=== PATIENT | female | born 1990 | race Caucasian/White ===

== ENCOUNTER 2018-07-17 04:00 | Emergency (ER) | payer BC, MEDICAID ==
[2018-07-17] MEDS ORDERED: Albuterol/Ipratropium 3.0-0.5 MG/3 ML Neb Soln NEB ONE (04:24)
--- NOTE | 2018-07-17 04:33 | EDM.PDOC ---
ED HPI GENERAL MEDICAL PROBLEM - General Chief Complaint: Respiratory Problem Stated Complaint: COUGH AND SOB Time Seen by Provider: 07/17/18 04:15 Source of Information: Reports: Patient History Limitations: Reports: No Limitations - History of Present Illness INITIAL COMMENTS - FREE TEXT/NARRATIVE: Patient presents with a worsening cough congestion feeling short of breath. They going on for at least 2 almost 3 days. She has a son that has had a cold but not this severe. Patient denies any fevers, has had posttussive emesis, loss of appetite. History of smoking in the past along with asthma in the past. No hospitalizations for asthma. No history of any major bronchitis or pneumonia. Patient does feel achy and flulike. No skin rash noted no burning pain or blood in the urine however she has had some diarrhea. Has had chest pain from coughing so much, no lightheadedness or dizziness no syncope or near syncope. Throat Pain Score (Numeric/FACES): 6 - Related Data Allergies Allergy/AdvReac Type Severity Reaction Status Date / Time No Known Allergies Allergy Verified 07/17/18 04:08 Home Meds: Home Meds Albuterol [Proventil HFA] 2 puff INH Q4H PRN #1 inhaler 07/17/18 [Rx] Codeine/Promethazine [Phenergan with Codeine] 5 ml PO Q6HR PRN #240 ml 07/17/18 [Rx] Doxycycline [Vibramycin] 100 mg PO BID #20 tab 07/17/18 [Rx] Past Medical History - Past Surgical History HEENT Surgical History: Reports: Tonsillectomy GI Surgical History: Reports: Cholecystectomy Social & Family History - Family History Cardiac: Reports: [place] Oncologic: Reports: Bone, Lung, Ovarian - Tobacco Use Smoking Status *Q: Former Smoker Used Tobacco, but Quit: Yes Month/Year Tobacco Last Used: 06/2018 - Caffeine Use Caffeine Use: Reports: Coffee - Recreational Drug Use Recreational Drug Use: No ED ROS GENERAL - Review of Systems Review Of Systems: See Below Constitutional: Reports: Fatigue. Denies: Fever, Chills HEENT: Reports: Rhinitis Respiratory: Reports: Shortness of Breath, Cough. Denies: Sputum Cardiovascular: Reports: Chest Pain. Denies: Palpitations, Syncope GI/Abdominal: Reports: Diarrhea, Nausea, Vomiting. Denies: Abdominal Pain, Hematemesis : Denies: Dysuria, Irregular Menses Musculoskeletal: Reports: Muscle Pain Skin: Denies: Rash Neurological: Reports: Headache. Denies: Dizziness ED EXAM, GENERAL - Physical Exam Exam: See Below Exam Limited By: No Limitations General Appearance: Alert, WD/WN, Mild Distress Nose: Normal Inspection Throat/Mouth: Normal Inspection, Normal Voice, Other (Mild pharyngeal erythema no exudate, tongue and uvula midline) Neck: Supple. No: Lymphadenopathy (L), Lymphadenopathy (R) Respiratory/Chest: Rhonchi, Wheezing, Other (Reproducible diffuse with chest wall tenderness in the upper parasternal areas). No: Pleural Rub, Retractions Cardiovascular: Normal Peripheral Pulses, Regular Rate, Rhythm, No Edema GI/Abdominal: Normal Bowel Sounds, Soft, Non-Tender Extremities: No Pedal Edema. No: Cecil's Sign Neurological: Alert, Oriented Psychiatric: Normal Affect, Normal Mood Skin Exam: Warm, Dry Lymphatic: No Adenopathy EKG INTERPRETATION EKG Date: 07/17/18 Time: 05:17 EKG Interpretation Comments: EKG shows sinus tachycardia rate of 124 when necessary 131 ms, resuscitate milliseconds. QT no acute ischemic changes noted. Course - Vital Signs Text/Narrative:: Patient presents with a severe cough congestion runny nose aches and pains. She has posttussive emesis as well. Sent for x-ray to rule out pneumonia. Given her DuoNeb treatment. Suspect underlying bronchitis rule out pneumonia. Doubt pulmonary embolism or acute coronary syndrome. She'll with doxycycline, albuterol inhaler, Phenergan with codeine elixir follow-up and return to caution given. Last Recorded V/S: Last Vital Signs Temp 98.3 F 07/17/18 04:05 Pulse 120 H 07/17/18 04:05 Resp 16 07/17/18 04:05 BP 142/102 H 07/17/18 04:05 Pulse Ox 98 07/17/18 04:45 - Orders/Labs/Meds Orders: Active Orders 24 hr Category Date Time Status EKG Documentation Completion [RC] STAT Care 07/17/18 05:00 Active RT Aerosol Therapy [RC] ASDIRECTED Care 07/17/18 04:24 Active Chest 2V [CR] Stat Exams 07/17/18 04:24 Taken Sodium Chloride 0.9% [Normal Saline] 100 ml Med 07/17/18 07:00 Active IV ASDIRECTED Medication Orders Sodium Chloride (Normal Saline) 100 mls @ 60 mls/hr IV ASDIRECTED GUILLERMINA Last Admin: 07/17/18 07:04 Dose: 60 mls/hr Labs: Laboratory Tests 07/17/18 07/17/18 07/17/18 Range/Units 05:28 05:28 05:28 WBC 11.87 H (3.98-10.04) K/mm3 RBC 5.40 H (3.98-5.22) M/mm3 Hgb 14.5 (11.2-15.7) gm/L Hct 42.3 (34.1-44.9) % MCV 78.3 L (79.4-94.8) fl MCH 26.9 (25.6-32.2) pg MCHC 34.3 (32.2-35.5) g/dl RDW Std Deviation 43.8 (36.4-46.3) fL Plt Count 276 (182-369) K/mm3 MPV 9.2 L (9.4-12.3) fl Neutrophils % (Manual) 75 H (40-60) % Band Neutrophils % 1 (0-10) % Lymphocytes % (Manual) 21 (20-40) % Atypical Lymphs % 0 % Monocytes % (Manual) 1 L (2-10) % Eosinophils % (Manual) 2 (0.7-5.8) % Basophils % (Manual) 0 L (0.1-1.2) Platelet Estimate Adequate RBC Morph Comment Normal D-Dimer, Quantitative 0.77 H (0.19-0.50) mg/L Sodium 137 (136-145) mEq/L Potassium 3.9 (3.5-5.1) mEq/L Chloride 101 (98-107) mEq/L Carbon Dioxide 26 (21-32) mEq/L Anion Gap 13.9 (5-15) BUN 9 (7-18) mg/dL Creatinine 1.0 (0.55-1.02) mg/dL Est Cr Clr Drug Dosing 68.02 mL/min Estimated GFR (MDRD) > 60 (>60) mL/min BUN/Creatinine Ratio 9.0 L (14-18) Glucose 117 H (74-106) mg/dL Calcium 9.1 (8.5-10.1) mg/dL Total Bilirubin 0.3 (0.2-1.0) mg/dL AST 37 (15-37) U/L ALT 61 H (14-59) U/L Alkaline Phosphatase 95 (46-116) U/L Total Protein 7.8 (6.4-8.2) g/dl Albumin 3.6 (3.4-5.0) g/dl Globulin 4.2 gm/dL Albumin/Globulin Ratio 0.9 L (1-2) Meds: Medications Generic Name Dose Route Start Last Admin Trade Name Freq PRN Reason Stop Dose Admin Sodium Chloride 100 mls @ 60 mls/hr 07/17/18 07:00 07/17/18 07:04 Normal Saline IV 60 mls/hr ASDIRECTED GUILLERMINA Administration Discontinued Medications Generic Name Dose Route Start Last Admin Trade Name Freq PRN Reason Stop Dose Admin Albuterol/Ipratropium 3 ml 07/17/18 04:24 07/17/18 04:38 Duoneb 3.0-0.5 Mg/3 Ml NEB 07/17/18 04:25 3 ml ONETIME ONE Administration Sodium Chloride 1,000 mls @ 500 mls/hr 07/17/18 05:18 07/17/18 05:38 Normal Saline IV 07/17/18 07:17 500 mls/hr ONETIME ONE Administration Iopamidol 100 ml 07/17/18 06:48 07/17/18 07:04 Isovue-370 (76%) IVPUSH 07/17/18 06:49 100 ml ONETIME ONE Administration Ondansetron HCl 4 mg 07/17/18 05:13 07/17/18 05:19 Zofran Odt PO 07/17/18 05:14 4 mg ONETIME ONE Administration Sodium Chloride 10 ml 07/17/18 06:48 07/17/18 07:04 Saline Flush FLUSH 07/17/18 06:49 10 ml ONETIME ONE Administration - Radiology Interpretation Free Text/Narrative:: Two-view chest x-ray shows normal cardiac silhouette, no pleural effusion, some mild hyperinflation. No obvious acute infiltrate noted, no other acute findings noted. There does appear to be some atelectasis in the bases bilaterally. CT Results Date: 07/17/18 (CT chest angiogram performed and read by radiology and demonstrates no signs of any acute pulmonary embolus him. Some soft tissue density noted within the mediastinum which is probable residual thymic tissue otherwise no signs of any acute infiltrate, minimal atelectasis noted in the left base.) - Re-Assessments/Exams Free Text/Narrative Re-Assessment/Exam: 07/17/18 05:04 Lungs sounds are somewhat improved after the DuoNeb treatment however she does have a persistent tachycardia. EKG obtained. 07/17/18 06:19 EKG shows sinus tachycardia however her d-dimer is elevated. Sent for CT and can rule out pulmonary embolism. Her heart rate otherwise is improved with IV fluids. Her white count is mildly elevated 11,700. Free Text/Narrative Re-Assessment/Exam: 07/17/18 06:45 Blood sugar 117 ALT is elevated otherwise no acute changes on her metabolic panel. 07/17/18 06:[address] chest angiogram, anticipate if negative for PE and no significant pneumonia patient will be able to be discharged home. Will discuss case with Dr. Bishop at change of shift. Free Text/Narrative Re-Assessment/Exam: 07/17/18 07:29 CT chest and grams unremarkable patient is improved. She is no longer tachycardia, resting more comfortably. We'll send her home with doxycycline, albuterol inhaler, Phenergan with codeine elixir, follow-up and return cautioned reviewed. Departure - Departure Time of Disposition: 07:29 Disposition: Home, Self-Care 01 Condition: Fair Clinical Impression: Acute bronchitis Qualifiers: Bronchitis organism: unspecified organism Qualified Code(s): J20.9 - Acute bronchitis, unspecified - Discharge Information *COPY OF PRESCRIPTION DRUG MONITORING REPORT IN PATIENT SRIDHAR: Not Applicable Prescriptions: Codeine/Promethazine [Phenergan with Codeine] 5 ml PO Q6HR PRN #240 ml PRN Reason: Cough Albuterol [Proventil HFA] 2 puff INH Q4H PRN #1 inhaler PRN Reason: Cough Doxycycline [Vibramycin] 100 mg PO BID #20 tab Instructions: Acute Bronchitis, Adult, [id number] Referrals: PCP,None [Primary Care Provider] - Forms: ED Department Discharge Additional Instructions: Rest, drink plenty of fluids. May use Tylenol or Advil as needed for headaches or aches and pains and fevers. Take antibiotics as directed. Recommend off work today. Return sooner if any increasing work of breathing, worsening cough, worsening chest pain, fevers, vomiting and unable to keep down fluids, worse - My Orders Last 24 Hours: My Active Orders 07/17/18 04:24 RT Aerosol Therapy [RC] ASDIRECTED Chest 2V [CR] Stat 07/17/18 05:00 EKG Documentation Completion [RC] STAT 07/17/18 07:00 Sodium Chloride 0.9% [Normal Saline] 100 ml IV ASDIRECTED - Assessment/Plan Last 24 Hours: My Active Orders 07/17/18 04:24 RT Aerosol Therapy [RC] ASDIRECTED Chest 2V [CR] Stat 07/17/18 05:00 EKG Documentation Completion [RC] STAT 07/17/18 07:00 Sodium Chloride 0.9% [Normal Saline] 100 ml IV ASDIRECTED
[2018-07-17] MEDS ORDERED: Ondansetron 4 MG Tab.DIS PO ONE (05:13)
[2018-07-17] MEDS ORDERED: Sodium Chloride 0.9% 1,000 ML IV ONE (05:18)
[2018-07-17] MEDS ORDERED: Iopamidol 755 Mg/ML 100 ML Bottle IVPUSH ONE (06:48)
[2018-07-17] MEDS ORDERED: Sodium Chloride 0.9% 10 ML Syringe FLUSH ONE (06:48)
[2018-07-17] MEDS ORDERED: Sodium Chloride 0.9% 100 ML IV SCH (07:00)
--- NOTE | 2018-07-17 07:27 | CT ---
CT chest Technique: Multiple axial sections through the chest were obtained. Intravenous contrast was utilized. Study performed as a pulmonary angiogram protocol. Findings: Pulmonary arteries are moderately well-opacified. No filling defects are seen to indicate pulmonary embolism. Aorta appears within normal limits. Soft tissue density noted within the superior mediastinum which is felt compatible with residual thymic tissue as an incidental note. Surgical clips are seen from prior cholecystectomy. Mediastinum and hilar regions show no adenopathy. Small subpleural cyst is noted within the superior segment of the right lower lung posteriorly. Minimal atelectasis is noted within the left base. Lungs otherwise are clear. Bone window settings were reviewed which are felt to be within normal limits for the patient's age. Impression: 1. No findings of pulmonary embolism. 2. Other incidental findings as noted above. Nothing acute is seen. Diagnostic code #2
--- NOTE | 2018-07-17 10:10 | CR ---
Chest: Two views of the chest were obtained. Comparison: No prior chest x-ray. Heart size and mediastinum are normal. Lungs are clear. Bony structures are unremarkable for the patient's age. Surgical clips are seen from prior cholecystectomy Impression: 1. Nothing acute is seen on two-view chest x-ray. Diagnostic code #2
== END 2018-07-17 07:50 | disposition home or self-care (01) ==
LOC: JD.ED 04:00
DX: J20.9 Acute bronchitis, unspecified (principal)
CPT/HCPCS: 36415; 71046; 71275; 80053; 85007; 85027; 85379; 93005; 94640; 96360; 99285; A9270; J7030; J7040; J7050; Q9967; 99283; J7620-GY

== ENCOUNTER 2019-09-02 09:17 | Emergency (ER) | payer SELFPAY ==
--- NOTE | 2019-09-02 10:04 | EDM.PDOC ---
ED HPI GENERAL MEDICAL PROBLEM - General Chief Complaint: Back Pain or Injury Stated Complaint: LOWER BACK PAIN Time Seen by Provider: 09/02/19 10:03 - History of Present Illness INITIAL COMMENTS - FREE TEXT/NARRATIVE: 28-year-old female presents to the emergency room with back pain. Patient developed back pain yesterday mid day. She denies any trauma she did laundry most the day yesterday. She has not had any abdominal pain other than some intermittent abdominal cramping which is normal for her. She's had no loss of bowel or bladder control. She has had no burning or frequency with urination. She describes pain as being worse on the left side radiates down the back of her leg and stops just above her knee. She has no numbness or tingling in her extremities. She has intermittent abdominal cramping which is normal for her this is thought to be related to her polycystic ovarian disease. 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 (See Below) Other CONFIGURATION MANAGEMENT MANAGER History: PCOS, possible endometriosis Musculoskeletal History: Reports: None Neurological History: Reports: Migraines Psychiatric History: Reports: Depression Endocrine/Metabolic History: Reports: None Hematologic History: Reports: None Immunologic History: Reports: None Oncologic (Cancer) History: Reports: None Dermatologic History: Reports: None - Past Surgical History Head Surgeries/Procedures: Reports: None HEENT Surgical History: Reports: Adenoidectomy, Oral Surgery, Tonsillectomy GI Surgical History: Reports: Cholecystectomy Social & Family History - Family History Cardiac: Reports: [place] Oncologic: Reports: Bone, Lung, Ovarian - Tobacco Use Smoking Status *Q: Current Every Day Smoker Years of Tobacco use: 10 Packs/Tins Daily: 0.2 - Caffeine Use Caffeine Use: Reports: Coffee - Recreational Drug Use Recreational Drug Use: No ED ROS GENERAL - Review of Systems Review Of Systems: See Below Constitutional: Reports: No Symptoms Respiratory: Reports: No Symptoms Cardiovascular: Reports: No Symptoms GI/Abdominal: Reports: Other (Some intermittent cramping this is normal for her and has been related in the past for polycystic ovarian disease.). Denies: Constipation, Diarrhea Musculoskeletal: Reports: Other (See history of present illness) ED EXAM,LOWER BACK PAIN/INJURY - Physical Exam Exam: See Below Exam Limited By: No Limitations General Appearance: Alert, No Apparent Distress Respiratory/Chest: No Respiratory Distress, Lungs Clear, Normal Breath Sounds Cardiovascular: Regular Rate, Rhythm, No Edema, No Murmur GI/Abdominal: Normal Bowel Sounds, Soft, Non-Tender Back Exam: Normal Inspection, Muscle Spasm (She has significant discomfort in the left sided paraspinous muscles), Other (Straight leg raises at about 35 are positive on the left for localized back pain and pain into her leg stopping above her knee fairly normal on the right side.). No: CVA Tenderness (L), CVA Tenderness (R), Vertebral Tenderness Course - Vital Signs Last Recorded V/S: Last Vital Signs Temp 36.1 C 09/02/19 09:25 Pulse 81 09/02/19 09:25 Resp 16 09/02/19 09:25 BP 131/85 09/02/19 09:25 Pulse Ox 98 09/02/19 09:25 - Re-Assessments/Exams Free Text/Narrative Re-Assessment/Exam: 09/02/19 10:30 Patient appears to have lumbar strain no traumatic event. Discussed this with the patient she is to continue her ibuprofen 800 mg 3 times a day with food and we will add Norflex. Departure - Departure Time of Disposition: 10:31 Disposition: Home, Self-Care 01 Clinical Impression: Acute lumbar myofascial strain - Discharge Information Prescriptions: Orphenadrine [Norflex] 100 mg PO BID #14 tab Referrals: PCP,Unknown [Ordering Only Provider] - Forms: ED Department Discharge Additional Instructions: Return to the emergency room with any questions problems or worsening symptoms. Follow-up in the Hospital clinic in 2-3 days for recheck. [phone]. Take the ibuprofen 800 mg 3 times a day with food. Start Norflex, this is a muscle relaxant, take as directed one twice a day for the next 3 days and then one in the evening for 3 days then as needed
== END 2019-09-02 10:55 | disposition home or self-care (01) ==
LOC: JD.ED 09:17
DX: S39.012A Strain of muscle, fascia and tendon of lower back, initial encounter (principal); J45.909 Unspecified asthma, uncomplicated; F17.210 Nicotine dependence, cigarettes, uncomplicated; Z91.018 Allergy to other foods; Z79.899 Other long term (current) drug therapy; X58.XXXA Exposure to other specified factors, initial encounter; Y93.E2 Activity, laundry
CPT/HCPCS: 99283

== ENCOUNTER 2020-02-06 22:29 | Emergency (ER) | payer SELFPAY ==
--- NOTE | 2020-02-06 23:50 | EDM.PDOC ---
ED HPI GENERAL MEDICAL PROBLEM - General Chief Complaint: Abdominal Pain Stated Complaint: RIGHT SIDE PAIN Time Seen by Provider: 02/06/20 23:14 - History of Present Illness INITIAL COMMENTS - FREE TEXT/NARRATIVE: 29-year-old female presents the emergency room with abdominal pain. This has been going on for about a week it is in the mid and left upper quadrant. She has had a cholecystectomy in the past. She denies any ongoing medical problems the only medication she is taking at this time is control pills. Tums helps but only for about an hour and alcohol makes worse. She denies any fevers or chills no black or tarry stools no nausea or vomiting however she gets a lot of heartburn and reflux at times. Right Abdominal Pain Score (Numeric/FACES): 6 - Related Data Allergies Allergy/AdvReac Type Severity Reaction Status Date / Time pumpkin Allergy Hives Verified 02/06/20 22:45 Home Meds: Home Meds Albuterol [Proventil HFA] 2 puff INH Q4H PRN #1 inhaler 07/17/18 [Rx] Orphenadrine [Norflex] 100 mg PO BID #14 tab 09/02/19 [Rx] Lansoprazole [Prevacid] 30 mg PO Q24H #30 capsule. 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 Below) Other FORM PRESSER History: PCOS, possible endometriosis Musculoskeletal History: Reports: None Neurological History: Reports: Migraines Psychiatric History: Reports: Depression Endocrine/Metabolic History: Reports: None Hematologic History: Reports: None Immunologic History: Reports: None Oncologic (Cancer) History: Reports: None Dermatologic History: Reports: None - Past Surgical History Head Surgeries/Procedures: Reports: None HEENT Surgical History: Reports: Adenoidectomy, Oral Surgery, Tonsillectomy GI Surgical History: Reports: Cholecystectomy Social & Family History - Family History Cardiac: Reports: [place] Oncologic: Reports: Bone, Lung, Ovarian - Tobacco Use Smoking Status *Q: Current Every Day Smoker Years of Tobacco use: 10 Packs/Tins Daily: 0.2 Second Hand Smoke Exposure: Yes - Caffeine Use Caffeine Use: Reports: None - Recreational Drug Use Recreational Drug Use: No ED ROS GENERAL - Review of Systems Review Of Systems: See Below Constitutional: Reports: No Symptoms HEENT: Reports: No Symptoms Respiratory: Reports: No Symptoms Cardiovascular: Reports: No Symptoms Endocrine: Reports: No Symptoms GI/Abdominal: Reports: Abdominal Pain, Nausea. Denies: Anorexia, Black Stool, Bloody Stool, Constipation, Diarrhea, Difficulty Swallowing, Hematemesis, Hematochezia, Melena, Vomiting : Reports: No Symptoms Musculoskeletal: Reports: No Symptoms Skin: Reports: No Symptoms Neurological: Reports: No Symptoms ED EXAM, GI/ABD - Physical Exam Exam: See Below Exam Limited By: No Limitations General Appearance: Alert, No Apparent Distress Head: Atraumatic, Normocephalic Neck: Normal Inspection, Supple, Non-Tender, Full Range of Motion. No: Lymphadenopathy (L), Lymphadenopathy (R) Respiratory/Chest: No Respiratory Distress, Lungs Clear, Normal Breath Sounds Cardiovascular: Regular Rate, Rhythm, No Edema, No Murmur GI/Abdominal Exam: Normal Bowel Sounds, Soft, Tender (This in the midepigastric area and the left toward epigastric area), Other (Female) Exam: Normal External Exam, Normal Speculum Exam Rectal (Female) Exam: Normal Exam Back Exam: Normal Inspection Extremities: No: Normal Inspection Neurological: No: Alert Lymphatic: No Adenopathy Course - Vital Signs Last Recorded V/S: Last Vital Signs Temp 37.1 C 02/06/20 22:43 Pulse 109 H 02/06/20 22:43 Resp 20 02/06/20 22:43 BP 154/99 H 02/06/20 22:43 Pulse Ox 98 02/06/20 22:43 - Orders/Labs/Meds Orders: Active Orders 24 hr Category Date Time Status CBC WITH AUTO DIFF [HEME] Stat Lab 02/06/20 23:51 Results Labs: Laboratory Tests 02/07/20 02/07/20 Range/Units 00:01 00:01 WBC 12.20 H (3.98-10.04) K/mm3 RBC 4.80 (3.98-5.22) M/mm3 Hgb 13.1 (11.2-15.7) gm/dl Hct 39.9 (34.1-44.9) % MCV 83.1 D (79.4-94.8) fl MCH 27.3 (25.6-32.2) pg MCHC 32.8 (32.2-35.5) g/dl RDW Std Deviation 43.3 (36.4-46.3) fL Plt Count 285 (182-369) K/mm3 MPV 9.4 (9.4-12.3) fl Neut % (Auto) 56.9 (34.0-71.1) % Lymph % (Auto) 34.0 (19.3-51.7) % Lewis % (Auto) 5.9 (4.7-12.5) % Eos % (Auto) 2.8 (0.7-5.8) Baso % (Auto) 0.2 (0.1-1.2) % Neut # (Auto) 6.93 H (1.56-6.13) K/mm3 Lymph # (Auto) 4.15 H (1.18-3.74) K/mm3 Lewis # (Auto) 0.72 H (0.24-0.36) K/mm3 Eos # (Auto) 0.34 (0.04-0.36) K/mm3 Baso # (Auto) 0.03 (0.01-0.08) K/mm3 Sodium 140 (136-145) mEq/L Potassium 4.0 (3.5-5.1) mEq/L Chloride 105 (98-107) mEq/L Carbon Dioxide 26 (21-32) mEq/L Anion Gap 13.0 (5-15) BUN 17 (7-18) mg/dL Creatinine 0.9 (0.55-1.02) mg/dL Est Cr Clr Drug Dosing 77.67 mL/min Estimated GFR (MDRD) > 60 (>60) mL/min BUN/Creatinine Ratio 18.9 H (14-18) Glucose 98 (74-106) mg/dL Calcium 9.1 (8.5-10.1) mg/dL Total Bilirubin 0.2 (0.2-1.0) mg/dL AST 21 (15-37) U/L ALT 44 (14-59) U/L Alkaline Phosphatase 83 (46-116) U/L Total Protein 6.9 (6.4-8.2) g/dl Albumin 3.3 L (3.4-5.0) g/dl Globulin 3.6 gm/dL Albumin/Globulin Ratio 0.9 L (1-2) Lipase 79 (73-393) U/L Meds: Medications Discontinued Medications Generic Name Dose Route Start Last Admin Trade Name [place] PRN Reason Stop Dose Admin Al Hydroxide/Mg Hydroxide 30 0 ml 02/06/20 23:51 02/07/20 00:04 ml/ Lidocaine HCl 15 ml PO 02/06/20 23:52 45 ml ONETIME ONE Administration Pantoprazole Sodium 40 mg 02/07/20 00:33 Protonix PO 02/07/20 00:34 ONETIME ONE - Re-Assessments/Exams Free Text/Narrative Re-Assessment/Exam: 02/07/20 00:29 Patient is doing much better after the GI cocktail still waiting on labs barring no tremendous abnormality in her blood work anticipate discharging home with Carafate and PPI therapy 02/07/20 00:37 Her labs look okay we will discharge. Departure - Departure Time of Disposition: 00:45 Disposition: Home, Self-Care 01 Clinical Impression: Dyspepsia - Discharge Information Referrals: PCP,None [Primary Care Provider] - Forms: ED Department Discharge Additional Instructions: Return to the emergency room with any questions problems or worsening symptoms. Establish with a local provider. You have been started on 2 medications the first 1 is Carafate you will take this for only 6 days take it just before breakfast lunch supper and bedtime. Discontinue this when you finish. You have also been started on Prevacid take 130 to 60 minutes before your morning meal. However, while taking the Carafate take it at least an hour before your morning meal. You have 2 refills on the Prevacid Sepsis Event Note - Evaluation Sepsis Screening Result: No Definite Risk - Focused Exam Vital Signs: Vital Signs Temp Pulse Resp BP Pulse Ox 02/06/20 22:43 37.1 C 109 H 20 154/99 H 98 Date Exam was Performed: 02/07/20 Time Exam was Performed: 00:37 - My Orders Last 24 Hours: My Active Orders 02/06/20 23:51 CBC WITH AUTO DIFF [HEME] Stat - Assessment/Plan Last 24 Hours: My Active Orders 02/06/20 23:51 CBC WITH AUTO DIFF [HEME] Stat
[2020-02-06] MEDS ORDERED: Alum Hydrox/Mag Hydrox/Simeth 30 ML, Lidocaine 2% 15 ML PO ONE ×2 (23:51)
[2020-02-07] MEDS ORDERED: Pantoprazole 40 MG Tab.CR PO ONE (00:33)
[2020-02-07] MEDS ORDERED: Sucralfate Suspension 1 GM/10 ML Cup PO ONE (00:45)
== END 2020-02-07 01:00 | disposition home or self-care (01) ==
LOC: JD.ED 22:29
DX: R10.13 Epigastric pain (principal); J45.909 Unspecified asthma, uncomplicated; F32.9 Major depressive disorder, single episode, unspecified; F17.210 Nicotine dependence, cigarettes, uncomplicated; Z91.018 Allergy to other foods; Z79.899 Other long term (current) drug therapy
CPT/HCPCS: 36415; 80053; 83690; 85025; 99284; A9270; 99283

== ENCOUNTER 2022-02-13 17:38 | Emergency (ER) | payer MEDICAID ==
[2022-02-13] MEDS ORDERED: Magnesium Citrate Solution 296 ML Bottle PO ONE (19:56)
== END 2022-02-13 20:19 | disposition home or self-care (01) ==
LOC: JD.ED 17:38
DX: K59.01 Slow transit constipation (principal); F17.210 Nicotine dependence, cigarettes, uncomplicated; Z88.5 Allergy status to narcotic agent; Z88.8 Allergy status to other drugs, medicaments and biological substances; Z91.018 Allergy to other foods
CPT/HCPCS: 36415; 76830; 80053; 83735; 86140; 99284; A9270

== ENCOUNTER 2023-03-18 07:11 | Emergency (ER) | payer MEDICAID ==
[2023-03-18] MEDS ORDERED: Acetaminophen 325 MG Tab PO ONE (08:00)
== END 2023-03-18 09:32 | disposition home or self-care (01) ==
LOC: JD.ED 07:11
DX: S01.21XA Laceration without foreign body of nose, initial encounter (principal); S01.412A Laceration without foreign body of left cheek and temporomandibular area, initial encounter; S39.012A Strain of muscle, fascia and tendon of lower back, initial encounter; J45.909 Unspecified asthma, uncomplicated; Z88.5 Allergy status to narcotic agent; Z91.018 Allergy to other foods; X99.1XXA Assault by knife, initial encounter
CPT/HCPCS: 12011; 70450; 72100; 99284; A9270

== ENCOUNTER 2024-10-11 21:46 | Emergency (ER) | payer MEDICAID ==
[2024-10-12] MEDS: Ketorolac 30 MG/ML SDV IM ONE (01:24)
[2024-10-12] MEDS: droPERidol 5 MG/2 ML SDV IM ONE (01:29)
== END 2024-10-12 04:15 | disposition swing bed (61) ==
LOC: JD.ED 21:46
DX: G89.29 Other chronic pain (principal); M54.6 Pain in thoracic spine; J45.909 Unspecified asthma, uncomplicated; E66.9 Obesity, unspecified; Z90.49 Acquired absence of other specified parts of digestive tract; Z88.5 Allergy status to narcotic agent; Z91.018 Allergy to other foods; Z79.51 Long term (current) use of inhaled steroids; Z79.899 Other long term (current) drug therapy; Z68.41 Body mass index [BMI] 40.0-44.9, adult
CPT/HCPCS: 81025; 96372; 99284; J1790; J1885

== ENCOUNTER 2025-02-20 16:42 | Emergency (ER) | payer MEDICAID ==
[2025-02-20] MEDS: Sodium Chloride 0.9% 10 ML Syringe FLUSH PRN (18:01)
[2025-02-20] MEDS: Iopamidol 612 MG/ML 100 ML Bottle IVPUSH ONE (18:07)
[2025-02-20 18:09] LABS: BASOPHILS PERCENT AUTO 0.4 % (0.0-1.0); EOSINOPHILS ABSOLUTE AUTO 0.2 K/mm3 (0.0-0.4); EOSINOPHILS PERCENT AUTO 2.2 % (0.0-6.0); HEMATOCRIT 40.1 % (37.0-47.0); HEMOGLOBIN 13.8 gm/dl (12.0-16.0); IMMATURE GRAN ABSOLUTE AUTO 0.02 K/mm3 (0.00-0.05); IMMATURE GRAN PERCENT AUTO 0.2 % (0.0-0.4); LYMPHOCYTES ABSOLUTE AUTO 3.1 K/mm3 (1.0-4.8); LYMPHOCYTES PERCENT AUTO 29.5 % (24.0-44.0); MEAN CORPUSCULAR HEMOGLOBIN 26.9 pg (28.0-32.0); MEAN CORPUSCULAR HGB CONC 34.4 g/dl (32.0-36.0); MEAN CORPUSCULAR VOLUME 78.2 fl (83.0-99.0); MEAN PLATELET VOLUME 8.8 fl (9.4-12.3); MONOCYTES ABSOLUTE AUTO 0.5 K/mm3 (0.0-0.8); MONOCYTES PERCENT AUTO 4.4 % (0.0-8.0); NEUTROPHILS ABSOLUTE AUTO 6.7 K/mm3 (1.8-7.7); NEUTROPHILS PERCENT AUTO 63.3 % (41.0-71.0); PLATELET COUNT,PLT 337 K/mm3 (150-400); RED BLOOD CELL COUNT 5.13 M/mm3 (4.10-5.30); WHITE BLOOD CELL COUNT,WBC 10.49 K/mm3 (3.9-11.3)
[2025-02-20] MEDS: Ondansetron 4 MG/2 ML SDV IVPUSH ONE (18:16)
[2025-02-20] MEDS: Ketorolac 30 MG/ML SDV IVPUSH ONE (18:20)
[2025-02-20] MEDS: Sodium Chloride 0.9% 1,000 ML IV SCH (18:25)
[2025-02-20 18:35] LABS: A/G RATIO 0.6 (1-2); ALANINE AMINOTRANSFERASE,ALT 26 U/L (14-59); ALKALINE PHOSPHATASE 96 U/L (46-116); ANION GAP 13.3 (5-15); ASPARTATE AMNIOTRANSFERASE,AST 12 U/L (15-37); BILIRUBIN TOTAL 0.2 mg/dL (0.2-1.0); BLOOD UREA NITROGEN,BUN 9 mg/dL (7-18); BUN/CREATININE RATIO 12.9 (14-18); C-REACTIVE PROTEIN 1.56 mg/dL (<0.30); CALCIUM 9.5 mg/dL (8.5-10.1); CARBON DIOXIDE,CO2 24 mEq/L (21-32); CHLORIDE,CL 102 mEq/L (98-107); CREATININE 0.7 mg/dL (0.55-1.02); EST CRCL DRUG DOSING (CG) 95.44 mL/min; ESTIMATED GFR 118 mL/min (>60); GLUCOSE RANDOM 135 mg/dL (70-99); LIPASE 31 U/L (16-77); POTASSIUM,K 3.3 mEq/L (3.5-5.1); PROTEIN TOTAL,TP 7.7 g/dl (6.4-8.2); SODIUM,NA 136 mEq/L (136-145); TROPONIN I HIGH SENSITIVITY < 4 pg/mL (<=51)
== END 2025-02-20 19:45 | disposition home or self-care (01) ==
LOC: JD.ED 16:42
DX: K52.9 Noninfective gastroenteritis and colitis, unspecified (principal); N83.202 Unspecified ovarian cyst, left side; J45.909 Unspecified asthma, uncomplicated; R55 Syncope and collapse; Z88.5 Allergy status to narcotic agent; Z88.8 Allergy status to other drugs, medicaments and biological substances; Z91.018 Allergy to other foods; Z79.51 Long term (current) use of inhaled steroids; Z79.899 Other long term (current) drug therapy
CPT/HCPCS: 36415; 74177; 80053; 83690; 84484; 84703; 85025; 86140; 93005; 96361; 96374; 96375; 99284; J1885; J2405; J7030; Q9967; 93010

== ENCOUNTER 2025-03-15 14:59 | Emergency (ER) | payer MEDICAID ==
[2025-03-15] MEDS: Ketorolac 60 MG/2 ML SDV IM ONE (15:19)
== END 2025-03-15 16:50 | disposition home or self-care (01) ==
LOC: JD.ED 14:59
DX: S42.021A Displaced fracture of shaft of right clavicle, initial encounter for closed fracture (principal); J45.909 Unspecified asthma, uncomplicated; E66.9 Obesity, unspecified; Z91.018 Allergy to other foods; Z88.8 Allergy status to other drugs, medicaments and biological substances; Z79.899 Other long term (current) drug therapy; Z90.49 Acquired absence of other specified parts of digestive tract; X50.9XXA Other and unspecified overexertion or strenuous movements or postures, initial encounter; Z68.41 Body mass index [BMI] 40.0-44.9, adult
CPT/HCPCS: 73000; 96372; 99283; J1885

== ENCOUNTER 2025-05-08 07:00 | Day surgery (SDC) | payer MEDICAID ==
[~2025-05-08 07:00] MED LIST: Sodium Chloride 0.9% 10 ML Syringe FLUSH PRN; Sodium Chloride 0.9% 10 ML Syringe FLUSH SCH
[2025-05-08] MEDS ORDERED: propofoL 1,000 MG/100 ML 100 ML ONE (07:01)
[2025-05-08] MEDS: Lactated Ringers 1,000 ML IV SCH (07:10)
[2025-05-08] MEDS ORDERED: Ropivacaine 0.5% 5 MG/ML 30 ML SDV ONE (07:12)
[2025-05-08] MEDS ORDERED: Midazolam 1 MG/ML 2 ML SDV ONE (07:12)
[2025-05-08] MEDS ORDERED: Rocuronium 50 MG/5 ML Vial ONE (07:12)
[2025-05-08] MEDS ORDERED: fentaNYL 100 MCG/2 ML SDV ONE ×3 (07:12→09:30)
[2025-05-08] MEDS: Albuterol/Ipratropium 3.0-0.5 MG/3 ML Neb Soln NEB ONE (07:33)
[2025-05-08] MEDS ORDERED: HYDROmorphone 0.5 MG/0.5 ML Syringe IVPUSH PRN (07:53)
[2025-05-08] MEDS ORDERED: Ondansetron 4 MG/2 ML SDV IVPUSH PRN (07:53)
[2025-05-08] MEDS ORDERED: fentaNYL 100 MCG/2 ML SDV IVPUSH PRN (07:53)
[2025-05-08] MEDS ORDERED: Labetalol 100 MG/20 ML MDV ONE (08:29)
[2025-05-08] MEDS ORDERED: Glycopyrrolate 0.2 MG/ML 2 ML SDV ONE (08:29)
[2025-05-08] MEDS ORDERED: dexmedeTOMIDine HCl 200 MCG/2 ML SDV ONE (08:29)
[2025-05-08] MEDS ORDERED: Dexamethasone 4 MG/ML 5 ML MDV ONE (08:29)
[2025-05-08] MEDS ORDERED: Esmolol 100 MG/10 ML SDV ONE (08:29)
[2025-05-08] MEDS ORDERED: ceFAZolin 2 GM Vial ONE (08:29)
[2025-05-08] MEDS ORDERED: Sodium Chloride 0.9% 100 ML ONE (08:29)
[2025-05-08] MEDS ORDERED: Lactated Ringers 1,000 ML ONE (08:41)
[2025-05-08] MEDS ORDERED: propofoL 500 MG/50 ML 50 ML ONE (08:54)
[2025-05-08] MEDS ORDERED: Sugammadex Sodium 200 MG/2 ML VIAL IV ONE (09:30)
[2025-05-08] MEDS: oxyCODONE 5 MG Tab PO PRN (10:42)
== END 2025-05-08 12:15 | disposition home or self-care (01) ==
LOC: JD.SDS 07:00
PROVIDERS: ATTEND Orthopaedic Surgery
DX: S42.021K Displaced fracture of shaft of right clavicle, subsequent encounter for fracture with nonunion (principal); E66.01 Morbid (severe) obesity due to excess calories; I10 Essential (primary) hypertension; J45.20 Mild intermittent asthma, uncomplicated; Z88.5 Allergy status to narcotic agent; Z88.8 Allergy status to other drugs, medicaments and biological substances; Z87.891 Personal history of nicotine dependence; Z79.899 Other long term (current) drug therapy; Z91.030 Bee allergy status; Z91.018 Allergy to other foods
CPT/HCPCS: 23485; 76000; A9270; C1713; J0690; J1100; J1596; J1805; J1920; J2250; J2704; J2795; J3010; J7120; J7620; 00450; 64450; J3490